=== PATIENT | female | born 1935 | race Two or more races ===

== ENCOUNTER 2023-02-13 14:08 | Inpatient (IN) | payer MEDICARE, BC ==
[~2023-02-13] VITALS: Ht 162.6 cm; Wt 41.0 kg
[2023-02-13] MEDS ORDERED: SODIUM CHLORIDE 0.9% 500 ML IV ONE (14:30)
[2023-02-13 16:43] LABS: Hemoglobin 9.5 g/dL (12.2-16.2); Mean Corpuscular Hemoglobin 27.6 pg (28.0-32.0); Mean Corpuscular Hgb Conc. 30.7 g/dL (32.0-36.0); Red Blood Cells 3.44 10^6/uL (4.0-5.20); Red Cell Distribution Width 19.1 % (11.8-14.3); White Blood Cell 8.9 10^3/uL (4.4-10.8)
[2023-02-13 16:47] LABS: Basophils % (manual) 0 (0.0-2.0); Blast Cells 0; Eosinophils % (manual) 0 (0-7); Metamyelocytes % 0; Myelocytes % 0; Promyelocytes % 0; Reactive Lymphocytes 0
[2023-02-13 17:00] LABS: Alanine Aminotransferase 27 U/L (7-40); Albumin 3.3 g/dL (3.2-4.8); Alkaline Phosphatase 108 U/L (46-116); Anion Gap 15 (5-15); Aspartate Aminotransferase 42 U/L (13-40); Bilirubin, Total 0.4 mg/dL (0.2-1.0); Calcium 6.5 mg/dL (8.7-10.4); Carbon Dioxide 15 mmol/L (20-30); Chloride 114 mmol/L (98-107); Glucose 58 mg/dL (74-106); Sodium 144 mmol/L (136-145)
[2023-02-13 17:01] LABS: Total Protein 6.2 g/dL (5.7-8.2)
[2023-02-13 17:03] LABS: Blood Urea Nitrogen 95 mg/dL (9-23); Potassium 7.6 mmol/L (3.5-5.1)
[2023-02-13 17:25] LABS: Band Neutrophils % (manual) 12; Lymphocytes % (manual) 3 (10.0-50.0); Monocytes % (manual) 3 (0-12); Platelet Estimate Adequate
[2023-02-13] MEDS ORDERED: LORazepam 0.5 MG TAB PO ONE (17:30)
[2023-02-13 18:46] LABS: Alanine Aminotransferase 27 U/L (7-40); Albumin 3.4 g/dL (3.2-4.8); Alkaline Phosphatase 111 U/L (46-116); Anion Gap 17 (5-15); Aspartate Aminotransferase 40 U/L (13-40); Bilirubin, Total 0.5 mg/dL (0.2-1.0); Calcium 6.5 mg/dL (8.7-10.4); Carbon Dioxide 15 mmol/L (20-30); Chloride 114 mmol/L (98-107); Glucose 56 mg/dL (74-106); Sodium 146 mmol/L (136-145); Total Protein 6.2 g/dL (5.7-8.2)
[2023-02-13] MEDS ORDERED: CALCIUM GLUC 1,000mg/50ml-NS 50 ML IV ONE (19:00)
[2023-02-13] MEDS ORDERED: SODIUM BICARBONATE 8.4 % INJ 50ML VIAL IV ONE (19:00)
[2023-02-13 19:12] LABS: Blood Urea Nitrogen 111 mg/dL (9-23); Potassium 7.2 mmol/L (3.5-5.1)
[2023-02-13 21:35] VITALS: PULSE 96; RESP 14; O2SAT 94
[2023-02-13] MEDS ORDERED: MORPHINE SULFATE INJ 2 MG/ml SYRG IV PRN (21:45)
[2023-02-13] MEDS ORDERED: ONDANSETRON HCL 4 MG/2 ML VIAL IV PRN (21:45)
[2023-02-13] MEDS ORDERED: ALBUTEROL SULF 2.5 MG/0.5ML(0.5%) NEB SOLN NEB ONE (21:45)
[2023-02-13] MEDS ORDERED: InsuLIN REG 1unit/0.01ml Soln (100units/ml) IV ONE ×2 (21:45→23:00)
[2023-02-13] MEDS ORDERED: ACETAMINOPHEN 325 MG TAB PO PRN (21:45)
[2023-02-13] MEDS ORDERED: DEXTROSE (50%) 50ML SYRG IV ONE (21:45)
[2023-02-13] MEDS ORDERED: NITROGLYCERIN 0.4 MG SL TAB SL PRN (21:45)
[2023-02-13] MEDS ORDERED: ALBUTEROL SULF 2.5 MG/0.5ML(0.5%) NEB SOLN ONE (21:57)
[2023-02-13] MEDS ORDERED: DEXTROSE 50% SYRINGE 50 ML IV ONE (22:46)
[2023-02-14] MEDS ORDERED: DEXTROSE (50%) 50ML SYRG IV ONE ×3 (01:15→20:45)
[2023-02-14] MEDS ORDERED: ALBUTEROL SULF 2.5 MG/0.5ML(0.5%) NEB SOLN NEB ONE ×5 (01:15→20:45)
[2023-02-14] MEDS ORDERED: SODIUM ZIRCONIUM CYCL 10 GM PAK PO ONE (01:15)
[2023-02-14] MEDS ORDERED: SODIUM BICARBONATE 8.4% INJ 50ML SYRINGE IV ONE ×2 (01:15→07:15)
[2023-02-14] MEDS ORDERED: InsuLIN REG 1unit/0.01ml Soln (100units/ml) IV ONE ×3 (01:15→20:45)
[2023-02-14] MEDS ORDERED: CALCIUM GLUC 1,000mg/50ml-NS 50 ML IV ONE ×3 (01:15→10:45)
[2023-02-14] MEDS ORDERED: FUROSEMIDE 20 MG/2 ML VIAL IV ONE ×2 (01:15→10:45)
[2023-02-14 05:43] LABS: Basophils # (auto) 0 10 ^3/uL (0-0.2); Basophils % (auto) 0.1 % (0.0-2.0); Eosinophils # (auto) 0 10 ^3/uL (0-0.8); Hematocrit 27.5 % (36.0-46.0); Hemoglobin 8.6 g/dL (12.2-16.2); Lymphocytes # (auto) 0.3 10 ^3/uL (0.4-5.4); Lymphocytes % (auto) 2.7 % (10.0-50.0); Mean Corpuscular Hemoglobin 27.4 pg (28.0-32.0); Mean Corpuscular Hgb Conc. 31.4 g/dL (32.0-36.0); Mean Corpuscular Volume 87.5 fL (80.0-100.0); Monocytes # (auto) 0.3 10 ^3/uL (0-1.3); Monocytes % (auto) 2.9 % (0.0-12.0); Neutrophils # (auto) 9.7 10 ^3/uL (1.6-8.6); Neutrophils % (auto) 94.3 % (37.0-80.0); Nucleated Red Blood Cells % 0.6 %; Red Blood Cells 3.15 10^6/uL (4.0-5.20); Red Cell Distribution Width 18.4 % (11.8-14.3); White Blood Cell 10.3 10^3/uL (4.4-10.8)
[2023-02-14 06:21] LABS: Alanine Aminotransferase 56 U/L (7-40); Albumin 3.1 g/dL (3.2-4.8); Alkaline Phosphatase 164 U/L (46-116); Anion Gap 21 (5-15); Aspartate Aminotransferase 127 U/L (13-40); BUN/Creatinine Ratio 26.8 (10.0-20.0); Bilirubin, Total 0.6 mg/dL (0.2-1.0); Calcium 6.6 mg/dL (8.7-10.4); Carbon Dioxide 16 mmol/L (20-30); Chloride 113 mmol/L (98-107); Glucose 128 mg/dL (74-106); Sodium 150 mmol/L (136-145); Total Protein 5.7 g/dL (5.7-8.2)
[2023-02-14 06:26] LABS: Blood Urea Nitrogen 137 mg/dL (9-23); Potassium 6.2 mmol/L (3.5-5.1)
[2023-02-14 07:08] LABS: Urine Bacteria FEW /hpf (None Seen); Urine Blood 1+ /uL (Negative); Urine Clarity HAZY (Clear); Urine Color Yellow (Yellow); Urine Protein, UAD 2+ (Negative); Urine Specific Gravity 1.017 (1.001-1.035); Urine Urobilinogen Normal (Negative); Urine WBC 6 /hpf (0 - 5)
[2023-02-14] MEDS: SODIUM ZIRCONIUM CYCL 10 GM PAK PO SCH ×4 (08:30→21:54)
[2023-02-14] MEDS: SODIUM BICARBONATE 50ML VIAL 150 ML in D5W 5% 1,000 ML IV SCH ×2 (08:55→21:28)
[2023-02-14] MEDS: ACCU-CHEK COMFORT CURVE STRIP VI SCH ×13 (10:45→23:03)
[2023-02-14 11:17] LABS: Base Excess -5.7 mmol/L (-2.0-2.0)
[2023-02-14] MEDS: NOREPINEPHRINE 8 MG/250ML KIT 250 ML IV SCH ×2 (11:45→12:14)
[2023-02-14 11:46] LABS: Amphetamine Screen, Urine Neg (NEGATIVE); Barbiturate Scree,Urine Neg (NEGATIVE); Benzodiazephine Screen, Urine Neg (NEGATIVE); Cannabinoid Screen, Urine Neg (NEGATIVE); Cocaine Screen, Urine Neg (NEGATIVE); Opiate Scree,Urine Neg (NEGATIVE); Phencyclidine Screen, Urine Neg (NEGATIVE)
[2023-02-14 11:54] LABS: INR 1.22 (0.9-1.15); Partial Thromboplastin Time 29.6 SEC (24.5-34.5); Prothrombin Time 12.6 sec (9.3-11.8)
[2023-02-14 11:55] LABS: Alanine Aminotransferase 274 U/L (7-40); Albumin 2.9 g/dL (3.2-4.8); Alkaline Phosphatase 961 U/L (46-116); Anion Gap 16 (5-15); Aspartate Aminotransferase 967 U/L (13-40); BUN/Creatinine Ratio 29.5 (10.0-20.0); Calcium 6.8 mg/dL (8.5-10.1); Carbon Dioxide 21 mmol/L (20-30); Chloride 115 mmol/L (98-107); Cholesterol 102 mg/dL (< 200); Creatine Kinase IFCC 311 U/L (34-145); Glucose 84 mg/dL (74-106); HDL Cholesterol 44 mg/dL (40-59); LDL Cholesterol 43 mg/dL (< 100); Sodium 152 mmol/L (136-145); Triglycerides 33 mg/dL (< 150)
[2023-02-14 11:56] LABS: Bilirubin, Total 0.9 mg/dL (0.2-1.0); Phosphorus 11.3 mg/dL (2.4-5.1); Total Protein 5.1 g/dL (5.7-8.2)
[2023-02-14 11:58] LABS: Blood Urea Nitrogen 142 mg/dL (9-23); Potassium 6.5 mmol/L (3.5-5.1)
[2023-02-14 11:59] LABS: Lactic Acid w/Reflex 5.7 mmol/L (0.4-2.0)
[2023-02-14 12:04] LABS: CRP High Sensitivity 3.72 mg/dL (<1.0)
[2023-02-14 12:26] LABS: Lipase 104 U/L (12-53); Magnesium 2.4 mg/dL (1.6-2.6)
[2023-02-14] MEDS ORDERED: PIPERACILLIN-TAZOB 3.375GM 100 ML IV ONE (12:30)
[2023-02-14 19:40] VITALS: O2SAT 99
[2023-02-14] MEDS: PIPERACILLIN-TAZOB 3.375GM 100 ML IV SCH (21:57)
[2023-02-15] VITALS (101 sets, daily range): BP systolic 75–141; BP diastolic 11–87; PULSE 66–143; RESP 10–22; TEMP 95.9–97.6; O2SAT 66–100
[2023-02-15] MEDS: ACCU-CHEK COMFORT CURVE STRIP VI SCH ×7 (00:02→22:18)
[2023-02-15] MEDS ORDERED: LORazepam 2MG/ML-1ML VIAL IV PRN (07:15)
[2023-02-15 07:36] LABS: Basophils # (auto) 0 10 ^3/uL (0-0.2); Eosinophils # (auto) 0 10 ^3/uL (0-0.8); Hemoglobin 7.4 g/dL (12.2-16.2); Lymphocytes # (auto) 0.2 10 ^3/uL (0.4-5.4); Lymphocytes % (auto) 1.5 % (10.0-50.0); White Blood Cell 14.6 10^3/uL (4.4-10.8)
[2023-02-15 07:39] LABS: Basophils % (auto) 0.1 % (0.0-2.0); Mean Corpuscular Hemoglobin 27.3 pg (28.0-32.0); Mean Corpuscular Hgb Conc. 32.1 g/dL (32.0-36.0); Mean Corpuscular Volume 85.1 fL (80.0-100.0); Monocytes # (auto) 0.3 10 ^3/uL (0-1.3); Monocytes % (auto) 2.4 % (0.0-12.0); Neutrophils # (auto) 14.1 10 ^3/uL (1.6-8.6); Nucleated Red Blood Cells % 1.1 %; Red Cell Distribution Width 17.6 % (11.8-14.3)
[2023-02-15 07:57] LABS: Alanine Aminotransferase 249 U/L (7-40); Albumin 2.7 g/dL (3.2-4.8); Alkaline Phosphatase 776 U/L (46-116); Anion Gap 15 (5-15); Aspartate Aminotransferase 618 U/L (13-40); Bilirubin, Total 0.6 mg/dL (0.2-1.0); Carbon Dioxide 25 mmol/L (20-30); Chloride 106 mmol/L (98-107); Creatine Kinase IFCC 360 U/L (34-145); Glucose 165 mg/dL (74-106); Phosphorus 10.4 mg/dL (2.4-5.1); Total Protein 4.9 g/dL (5.7-8.2)
[2023-02-15 08:05] LABS: CRP High Sensitivity 5.28 mg/dL (<1.0)
[2023-02-15 08:07] LABS: Sodium 146 mmol/L (136-145)
[2023-02-15 08:09] LABS: Blood Urea Nitrogen 119 mg/dL (9-23); Calcium 5.7 mg/dL (8.5-10.1); Potassium 6.3 mmol/L (3.5-5.1)
[2023-02-15] MEDS ORDERED: BUMETANIDE 2.5mg/10ml (0.25 mg/ml) INJ IV ONE (08:30)
[2023-02-15 08:42] LABS: % Iron Saturation 25.9 % (15-50)
[2023-02-15] MEDS ORDERED: DEXTROSE (50%) 50ML SYRG IV ONE ×2 (08:45→19:15)
[2023-02-15] MEDS ORDERED: SODIUM BICARBONATE 8.4% INJ 50ML SYRINGE IV ONE ×2 (08:45→19:15)
[2023-02-15] MEDS ORDERED: InsuLIN REG 1unit/0.01ml Soln (100units/ml) IV ONE ×2 (08:45→19:15)
[2023-02-15] MEDS ORDERED: CALCIUM GLUC 1,000mg/50ml-NS 50 ML IV ONE ×2 (08:45→19:15)
[2023-02-15] MEDS ORDERED: ALBUTEROL SULF 2.5 MG/0.5ML(0.5%) NEB SOLN NEB ONE ×2 (08:45→19:15)
[2023-02-15 08:46] LABS: Lipase 78 U/L (12-53); Magnesium 2.2 mg/dL (1.6-2.6)
[2023-02-15 08:54] LABS: Lactic Acid w/Reflex 2.6 mmol/L (0.4-2.0)
[2023-02-15 10:07] LABS: Urine Bacteria FEW /hpf (None Seen); Urine Blood 2+ /uL (Negative); Urine Clarity HAZY (Clear); Urine Color Yellow (Yellow); Urine Protein, UAD 2+ (Negative); Urine Specific Gravity 1.014 (1.001-1.035); Urine Urobilinogen Normal (Negative); Urine WBC 11 /hpf (0 - 5); Urine pH 5.5 (5.0-8.0)
[2023-02-15 10:10] LABS: Protein, Urine 180.9 mg/dL (0.0-11.9)
[2023-02-15 10:13] LABS: Creatinine, Urine 54.09 mg/dL (30.0-125.0)
[2023-02-15] MEDS: levETIRAcetam 500 mg/100ml 100 ML IV SCH ×2 (10:40→22:18)
[2023-02-15] MEDS: LEVOTHYROXINE SODIUM 100 MCG/5 ML INJ IV SCH (10:42)
[2023-02-15] MEDS: SODIUM BICARBONATE 50ML VIAL 150 ML in D5W 5% 1,000 ML IV SCH ×2 (12:14→14:15)
[2023-02-15] MEDS: PIPERACILLIN-TAZOB 3.375GM 100 ML IV SCH ×2 (12:17→22:18)
[2023-02-15] MEDS: NOREPINEPHRINE 8 MG/250ML KIT 250 ML IV SCH ×2 (13:14→20:50)
[2023-02-15] MEDS: SODIUM ZIRCONIUM CYCL 10 GM PAK PO SCH ×2 (14:00→22:00)
[2023-02-15] MEDS ORDERED: FUROSEMIDE 40 MG/4 ML VIAL IV ONE (19:15)
[2023-02-16] VITALS (87 sets, daily range): BP systolic 48–134; BP diastolic 10–71; PULSE 69–99; RESP 13–29; TEMP 97.3–97.5; O2SAT 91–100
[2023-02-16] MEDS: ACCU-CHEK COMFORT CURVE STRIP VI SCH ×4 (02:06→14:46)
[2023-02-16] MEDS: DEXTROSE (50%) 50ML SYRG IV PRN ×2 (02:17→14:46)
[2023-02-16] MEDS: NOREPINEPHRINE 8 MG/250ML KIT 250 ML IV SCH ×4 (03:11→17:12)
[2023-02-16 05:18] LABS: Basophils # (auto) 0 10 ^3/uL (0-0.2); Eosinophils # (auto) 0 10 ^3/uL (0-0.8); Hematocrit 24.8 % (36.0-46.0); Hemoglobin 7.9 g/dL (12.2-16.2); Mean Corpuscular Hgb Conc. 31.8 g/dL (32.0-36.0); Monocytes # (auto) 0.4 10 ^3/uL (0-1.3)
[2023-02-16 05:20] LABS: Lymphocytes # (auto) 0.5 10 ^3/uL (0.4-5.4); Lymphocytes % (auto) 3.2 % (10.0-50.0); Mean Corpuscular Hemoglobin 27.1 pg (28.0-32.0); Mean Corpuscular Volume 85.1 fL (80.0-100.0); Monocytes % (auto) 2.7 % (0.0-12.0); Neutrophils # (auto) 15.3 10 ^3/uL (1.6-8.6); Neutrophils % (auto) 94.1 % (37.0-80.0); Nucleated Red Blood Cells % 0.9 %; Red Blood Cells 2.91 10^6/uL (4.0-5.20); Red Cell Distribution Width 17.6 % (11.8-14.3); White Blood Cell 16.2 10^3/uL (4.4-10.8)
[2023-02-16 05:26] LABS: Alanine Aminotransferase 206 U/L (7-40); Albumin 2.7 g/dL (3.2-4.8); Alkaline Phosphatase 592 U/L (46-116); Anion Gap 13 (5-15); Aspartate Aminotransferase 349 U/L (13-40); BUN/Creatinine Ratio 27.9 (10.0-20.0); Carbon Dioxide 31 mmol/L (20-30); Chloride 102 mmol/L (98-107); Creatine Kinase IFCC 515 U/L (34-145); Glucose 121 mg/dL (74-106); Magnesium 2.1 mg/dL (1.6-2.6); Phosphorus 9.7 mg/dL (2.4-5.1); Sodium 146 mmol/L (136-145)
[2023-02-16 05:27] LABS: Bilirubin, Total 0.8 mg/dL (0.2-1.0)
[2023-02-16] MEDS: SODIUM BICARBONATE 50ML VIAL 150 ML in D5W 5% 1,000 ML IV SCH (05:35)
[2023-02-16 05:46] LABS: Blood Urea Nitrogen 133 mg/dL (9-23); Calcium 5.2 mg/dL (8.7-10.4)
[2023-02-16 05:47] LABS: Potassium 5.9 mmol/L (3.5-5.1)
[2023-02-16] MEDS: SODIUM ZIRCONIUM CYCL 10 GM PAK PO SCH ×2 (06:00→14:00)
[2023-02-16 07:01] LABS: CRP High Sensitivity 5.47 mg/dL (<1.0)
[2023-02-16] MEDS: levETIRAcetam 500 mg/100ml 100 ML IV SCH (09:41)
[2023-02-16] MEDS: LEVOTHYROXINE SODIUM 100 MCG/5 ML INJ IV SCH (09:41)
[2023-02-16] MEDS: PIPERACILLIN-TAZOB 3.375GM 100 ML IV SCH (10:19)
[2023-02-16] MEDS: VASOPRESSIN 20 UNITS in SODIUM CHL 0.9% 99 ML IV SCH ×2 (10:36→12:42)
[2023-02-16] MEDS ORDERED: IRON SUCROSE COMPLEX 100 ML IV SCH (12:00)
[2023-02-16] MEDS ORDERED: LORazepam 2MG/ML-1ML VIAL IV PRN (17:30)
[2023-02-16] MEDS ORDERED: MORPHINE SULFATE INJ 2 MG/ml SYRG IV PRN (17:30)
[2023-02-17 04:51] VITALS: BP 69/21; PULSE 44; RESP 16; TEMP 94.3; O2SAT 95
[2023-02-17 08:00] VITALS: PULSE 56; PULSE 59; RESP 15; O2SAT 97
[2023-02-17 09:00] VITALS: BP 66/14; PULSE 62; RESP 16; O2SAT 95
[2023-02-17] MEDS ORDERED: SODIUM CHLORIDE 0.9% 1,000 ML IV SCH (10:45)
[2023-02-17] MEDS ORDERED: SODIUM CHLORIDE 0.9% 1,000 ML IV ONE (10:45)
[2023-02-17 12:13] VITALS: BP 66/13
[2023-02-17 13:00] VITALS: BP 69/13; PULSE 74; RESP 12; O2SAT 88
[2023-02-17] MEDS ORDERED: MORPHINE SULFATE INJ 2 MG/ml SYRG ONE ×2 (21:27→23:03)
[2023-02-17] MEDS ORDERED: LORazepam 2MG/ML-1ML VIAL ONE ×2 (21:30→23:02)
== END 2023-02-17 16:49 | disposition hospice, home (50) | DRG 871 ==
LOC: EDBD 14:08 → ER 14:08 → TELE 21:49 → ICU WEST 02-15 03:22 → DOU IN ICU 02-16 16:54 → ICU WEST 02-16 17:33 → EAST 02-16 20:41
PROVIDERS: ADMIT Internal Medicine; ATTEND Internal Medicine
PROC: 05HA33Z Insertion of Infusion Device into Left Brachial Vein, Percutaneous Approach (ICD-10-PCS; principal; 2023-02-14)
PROC: B54NZZA Ultrasonography of Left Upper Extremity Veins, Guidance (ICD-10-PCS; 2023-02-14)
DX: A41.9 Sepsis, unspecified organism (principal); E43 Unspecified severe protein-calorie malnutrition; G93.41 Metabolic encephalopathy; J69.0 Pneumonitis due to inhalation of food and vomit; R65.21 Severe sepsis with septic shock; N17.0 Acute kidney failure with tubular necrosis; J96.00 Acute respiratory failure, unspecified whether with hypoxia or hypercapnia; Z68.1 Body mass index [BMI] 19.9 or less, adult; E87.20 Acidosis, unspecified; Z66 Do not resuscitate; E87.5 Hyperkalemia; E86.0 Dehydration; D64.9 Anemia, unspecified; Z51.5 Encounter for palliative care; R62.7 Adult failure to thrive; S41.111A Laceration without foreign body of right upper arm, initial encounter; F03.90 Unspecified dementia, unspecified severity, without behavioral disturbance, psychotic disturbance, mood disturbance, and anxiety; E16.2 Hypoglycemia, unspecified; E83.39 Other disorders of phosphorus metabolism; E03.9 Hypothyroidism, unspecified; E83.51 Hypocalcemia; W18.39XA Other fall on same level, initial encounter; I13.10 Hypertensive heart and chronic kidney disease without heart failure, with stage 1 through stage 4 chronic kidney disease, or unspecified chronic kidney disease; N18.9 Chronic kidney disease, unspecified; R56.9 Unspecified convulsions; E87.8 Other disorders of electrolyte and fluid balance, not elsewhere classified; Y93.89 Activity, other specified; Y92.89 Other specified places as the place of occurrence of the external cause; Y99.8 Other external cause status
CPT/HCPCS: 36415; 36600; 70450; 71045; 76775; 80053; 80061; 80307; 81001; 82140; 82306; 82310; 82550; 82570; 82607; 82746; 82805; 82962; 83036; 83540; 83550; 83605; 83615; 83690; 83735; 83880; 83970; 84100; 84132; 84156; 84443; 85007; 85025; 85027; 85045; 85610; 85730; 86141; 87040; 87081; 87086; 92610; 93005; 94640; G0378; J1756; J1815; J2543; J3490